=== PATIENT | female | born 1985 | race African-American/Black ===

== ENCOUNTER 2016-08-21 07:07 | Emergency (ER) | payer OTHER ==
[~2016-08-21] VITALS: Ht 147.3 cm; Wt 56.7 kg
[~2016-08-21 07:07] MED LIST: AMOXICILLIN 50500 M1 PO; CIPRO500 MG PO; FLAGYL500 MG PO; HYDROCODONE-AP1 EAC6 PO; IBUPROFEN 600600 M1 PO; IBUPROFEN 800800 M1 PO; MACROBID 100 M100 M1 PO; NOHOMEMEDICATIONS; TAMIFLU75 MG PO; TESSALON PERLE100 MG PO
[2016-08-21 07:08] VITALS: BP 133/79
[2016-08-21 07:23] LABS: URINE BILIRUBIN NEGATIVE (Negative); URINE BLOOD TRACE (Negative); URINE COLOR YELLOW; URINE GLUCOSE-RANDOM* NEGATIVE (Negative); URINE KETONES NEGATIVE (Negative); URINE NITRITE NEGATIVE (Negative); URINE PROTEIN (DIPSTICK) NEGATIVE (Negative); URINE UROBILINOGEN 0.2 E.U./dl (0.2-1.0)
[2016-08-21] MEDS ORDERED: FLAGYL500 MG PO (08:08)
== END 2016-08-21 08:08 | disposition home or self-care (01) ==
LOC: ER 07:07
PROVIDERS: Emergency Medicine
DX: N76.0 Acute vaginitis (principal); F10.99 Alcohol use, unspecified with unspecified alcohol-induced disorder

== ENCOUNTER 2016-10-19 02:42 | Emergency (ER) | payer OTHER ==
[~2016-10-19] VITALS: Ht 147.3 cm; Wt 58.1 kg
[2016-10-19 02:42] VITALS: BP 122/81
== END 2016-10-19 04:08 | disposition home or self-care (01) ==
LOC: ER 02:42
DX: S93.402A Sprain of unspecified ligament of left ankle, initial encounter (principal); F10.99 Alcohol use, unspecified with unspecified alcohol-induced disorder; W18.09XA Striking against other object with subsequent fall, initial encounter; Y93.89 Activity, other specified; Y92.89 Other specified places as the place of occurrence of the external cause; Y99.8 Other external cause status

== ENCOUNTER 2017-07-23 09:07 | Emergency (ER) | payer OTHER ==
[~2017-07-23] VITALS: Ht 144.8 cm; Wt 65.8 kg
[2017-07-23 09:13] VITALS: BP 124/69
[2017-07-23] MEDS ORDERED: IBUPROFEN 600600 M1 PO (09:41)
== END 2017-07-23 09:56 | disposition home or self-care (01) ==
LOC: ER 09:07
DX: J02.9 Acute pharyngitis, unspecified (principal)

== ENCOUNTER 2018-08-01 03:16 | Emergency (ER) | payer OTHER ==
[~2018-08-01] VITALS: Ht 142.2 cm; Wt 61.2 kg
[2018-08-01 03:17] VITALS: BP 141/87
[2018-08-01] MEDS ORDERED: TOBRAMYCIN SULFA5 M1 OPHTHALMIC (04:16)
== END 2018-08-01 04:39 | disposition home or self-care (01) ==
LOC: ER 03:16
DX: H10.89 Other conjunctivitis (principal); B96.89 Other specified bacterial agents as the cause of diseases classified elsewhere